=== PATIENT | female | born 1990 | race African-American/Black ===

== ENCOUNTER 2017-04-26 18:07 | Emergency (ER) | payer SELFPAY ==
[~2017-04-26] VITALS: Ht 157.5 cm; Wt 59.1 kg
[2017-04-26 18:16] VITALS: BP 107/62
== END 2017-04-26 19:42 | disposition left against medical advice (07) ==
LOC: EMS 18:12
DX: T38.0X5A Adverse effect of glucocorticoids and synthetic analogues, initial encounter (principal); Z53.21 Procedure and treatment not carried out due to patient leaving prior to being seen by health care provider